=== PATIENT | female | born 1940 | race Caucasian/White ===

== ENCOUNTER 2016-10-23 17:37 | Emergency (ER) | payer MEDICARE, OTHER ==
--- NOTE | ~2016-10-23 | CR281 ---
[facility] A Service of [facility] & [facility] RADIOLOGY TEXT RESULTS PATIENT: JONATHON HOOD LOCATION: [facility] : 36 UNIT #: [id number] AGE: [address]: Roderick Dallas MD SEX: F ORDER DR: [id number] [facility] [address] [place], [place] [address] [id number] MR#: [id number] Acc #: [id number] NAME: JONATHON HOOD : 1940 SEX: F STUDY DATE/TIME: 10/23/2016 17:57 UNIT: [facility] ROOM: STUDY DESCRIPTION: CR Wrist Min 3 View Lt Attending Physician: Roderick Dallas M.D. Ordering Physician: Roderick Dallas M.D. Primary Care Physician: Kurtis Urbina M.D. MEDICAL IMAGING REPORT This report is preliminary unless electronic signature is present EXAM Left wrist 3 views HISTORY Posterior wrist pain and swelling after fall today. FINDINGS 3 views left wrist demonstrate transverse fracture through the distal radial metaphysis with multiple adjacent comminuted fracture fragments. There is posterior displacement of the distal fracture fragment by 1.2 cm and there is 1 cm overriding of the proximal distal radial fracture fragments. There is also approximately 30 degrees posterior angulation of the dominant distal radial fracture fragment. There is a transverse fracture through the base the ulnar styloid process which is displaced approximately 7 mm. Overlying soft tissue swelling about the wrist. 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 Dictated by... Jarrell Andrea M.D. THIS IS AN ELECTRONICALLY VERIFIED REPORT Jarrell Andrea M.D. at 10/24/2016 5:36 PM SEA/wilfredo TD: 10/24/2016 07:02 JOB #: [id number] MEDICAL IMAGING REPORT Page 1 of 1 COPY
[~2016-10-23 17:37] MED LIST: AMLODIPINE BESYL5 MG PO; ASPIRIN81 M2 PO; BACTRIM DS TABL1 TA1 PO; CELEXA20 MG PO; LIPITOR20 MG PO; LISINOPRIL-HCTZ1 T18 PO; LOPRESSOR PO; METOPROLOL TAR100 MG PO; NORVASC PO
== END 2016-10-23 19:43 | disposition home or self-care (01) ==
LOC: CED 17:37
DX: S52.502A Unspecified fracture of the lower end of left radius, initial encounter for closed fracture (principal); I10 Essential (primary) hypertension; E78.5 Hyperlipidemia, unspecified; Z79.899 Other long term (current) drug therapy; Z79.82 Long term (current) use of aspirin; W01.0XXA Fall on same level from slipping, tripping and stumbling without subsequent striking against object, initial encounter; Y92.027 Garden or yard of mobile home as the place of occurrence of the external cause
CPT/HCPCS: 29125; 73110; 99283